=== PATIENT | female | born 1990 | race Caucasian/White ===

== ENCOUNTER 2018-02-27 19:16 | Emergency (ER) | payer MEDICAID ==
[2018-02-27 19:45] VITALS: BMI 28.7
[2018-02-27 21:15] LABS: SQUAMOUS EPITHIAL 1 /hpf (0-5); URINE BACTERIA OCC (<OCC); URINE BILIRUBIN NEGATIVE (NEGATIVE); URINE CLARITY SLIGHTY-CLOUDY (Clear); URINE COLOR YELLOW (YELLOW); URINE GLUCOSE (UA) NEG (Normal); URINE LEUKOCYTE ESTERASE NEG Leu/uL (Negative); URINE PROTEIN NEGATIVE (NEGATIVE)
[2018-02-27 21:18] LABS: URINE BLOOD TRACE (NEGATIVE)
[2018-02-28 01:44] VITALS: BP 116/70; PULSE 106; RESP 16; TEMP 97.9; O2SAT 99
--- NOTE | 2018-02-28 08:25 | OBDCSUM ---
Datetime: 02/27/2018 21:30 Discharged to, Provider: Home Follow up at, Provider: [facility] Disch Instr Activity: Bedrest Disch Instr Diet: Regular Discharge Diet restrict Prov: Pt had order for bedrest from clinic for placenta previa Discharge Time: 02/27/2018 21:30 Follow up in weeks, Provider: 03/08/18 Disch Referrals: None Discharge Comment, Provider: No VB while in L_D Discharge Diagnosis Prov Other: Placetna previa -
--- NOTE | 2018-02-28 08:26 | OBHP ---
Datetime: 02/27/2018 19:48 IP Adm Impression: , intrauterine ; No Active Labor; Intact Membranes IP Chief Complaint Other: Passed ? blood clot IP Admit Plan: Observation/Evaluation Admit Comment, IP Provider: Pt is a 28 yo 34.1wk NAZANIN 04/09/18 based on LMP 07/10/17 and 15 wk U /S 10/17/17. Here with vaginal spotting since last week, she states that it started as light brown and she noticed a bright red clot two days ago. She has a history or placental previa with . De nies contractions, denies LOF, states the baby has good movements. Pt is a [facility] patient. Denies any pain, headaches, blurry vision, chest pain, SOB, NVDC, or burning with urination. OB Hx: Patient has placenta previa with current 2 previous C-sections- (2006,2015)- denies complications Wad Impregnator Hx: Last sexually active months ago, denies any STI's, patient has had an abnormal pap smear i n 2012-HPV PNL: GBS unknown, ABO:O+, Rubella- Equivocal, PPD- neg, Declined TDAP PmHx: None Meds: None Allergies: NKDA FamHx: None Social Hx: Denies smoking, alcohol, or drug use Surg Hx: Breast Augmentation-2012 A/P 34.1wks IUP with hx of placenta previa here Hx ? VB - Monitor heart tracings - Patient has a scheduled C -section 04/03/18 at [facility] - Speculum exam done- cervix closed Mindy Brooke M.D. PGY-1 Case reviewed and discussed with Dr. Estephanie MORA Hosptialist note. With PGY1, I saw and examined this patinet. Kena cevallos note. SHARMAINEVICENTA will observe in [facility]REA for VB Extremities - PN: Normal Abdomen - PN: Normal Lungs - PN: Normal Heart - PN: Normal Neurologic - PN: Normal HEENT - PN: Normal General - PN: Normal FHR - Baseline A Provider: 140 Membranes, Provider: Intact Comments, ACOG Physical Exam: Speculum Exam- external genitalia no bleeding noted, no internal bleed ing noted internally, small brown discharge, No ROM, cervix closed Abdomen- soft, nontender, nondistended, no acute abdomen, + BS heard throughout. Pool Provider: Negative IP Hx Assessment: The History has been Reviewed and is Current EGA AdmitDate IP: 34.1 Vital Signs Provider: Reviewed; Within Normal Limits IP Chief Complaint: Other NICHD Variability Prov Fetus A: Moderate 6-25bpm NICHD Accel Fetus A IP Provider: [id number] FHR Category Provider Fetus A: Category I NICHD Decel Fetus A IP Provider: None Dilatation, Provider: 0
== END 2018-02-27 21:40 | disposition home or self-care (01) ==
LOC: H.EROB2 19:16
DX: O26.853 Spotting complicating pregnancy, third trimester (principal); O09.299 Supervision of pregnancy with other poor reproductive or obstetric history, unspecified trimester; Z3A.34 34 weeks gestation of pregnancy